=== PATIENT | female | born 1975 | race Caucasian/White ===

== ENCOUNTER 2017-06-15 15:32 | Emergency (ER) | payer OTHER ==
[~2017-06-15] VITALS: Ht 157.5 cm; Wt 68.5 kg
[2017-06-15 15:41] VITALS: Ht 157.5 cm; Wt 68.5 kg
[2017-06-15 16:30] VITALS: BP 143/84
== END 2017-06-15 17:08 | disposition home or self-care (01) ==
LOC: ED 15:32
DX: M79.671 Pain in right foot (principal)